=== PATIENT | female | born 1980 ===

== ENCOUNTER 2018-05-23 22:43 | Emergency (ER) | payer SELFPAY ==
[2018-05-23 22:52] VITALS: BP 150/99
--- NOTE | 2018-05-23 22:53 | EDPHY ---
H & P Time Seen by Provider: 05/23/18 22:46 HPI/ROS: HPI Medical clearance for snf. Alcohol intoxication. 37-year-old female with [employer] police by EMS. This [facility] [place] [facility]. She has been drinking alcohol. She does not admit to other substance abuse. She apparently was being combative and acting bizarrely. When police approached her, she resisted them and ran away. She was then apprehended by them and is now under arrest. They brought her here for medical clearance for snf. She does have some superficial abrasions on her left big toe. Otherwise no other injuries or complaints. ROS: Constitutional: No fever, no chills. No weakness. Eyes: No discharge. No changes in vision. ENT: No sore throat. No nasal congestion or rhinorrhea. Respiratory: No cough. No shortness of breath. Cardiac: No chest pain, no palpitations. Gastrointestinal: No abdominal pain, no vomiting, no diarrhea. Genitourinary: No hematuria. No dysuria or increased frequency with urination. Musculoskeletal: No back pain. No neck pain. No myalgias or arthralgias. Skin: No rashes. Neurological: No headache. No focal weakness or altered sensation. Past medical history: She denies any past medical history. Social history: States she has been drinking alcohol tonight. Denies IV drugs and street drugs. Here currently by herself. Physical Exam: General Appearance: Alert, no distress. This patient is responding to questions appropriately and in full sentences. This patient appears well- hydrated and well-nourished. Head: Normocephalic atraumatic. Eyes: Pupils equal and round, dilated at 4-2 mm bilaterally, no pallor or injection. No lid edema, erythema or injection. ENT, Mouth: Mucous membranes are moist. The pharyngeal tissues are unremarkable. No edema or swelling. No asymmetry suggestive of abscess. No erythema or exudates. No tongue lacerations or abrasions. Dentition is intact. Respiratory: There are no retractions, lungs are clear to auscultation with good air movement bilaterally. Cardiovascular: Regular rate and rhythm. No murmur. Gastrointestinal: Abdomen is soft and nontender, no masses, bowel sounds normal. No focal tenderness at McBurney's point. No Allan sign. Neurological: Motor sensory function is grossly intact. Cranial nerves are normal. Skin: Warm and dry, no rashes. Superficial abrasions to toes on left foot. Musculoskeletal: Neck is supple and nontender. No midline cervical tenderness on palpation. Extremities are symmetrical. All joints range without pain or impingement. Psychiatric: No agitation. No depression. Database: EKG: Imaging: Procedures: Emergency department course: Vital signs reviewed. She is mildly tachycardic. Moderately hypertensive. I suspect both alcohol and a psychotropic street drug. I do not feel at this time she requires further emergency department workup and management. She was medically cleared for discharge with police to snf. Return to emergency department precautions were discussed with her. All of her questions were answered. She was discharged in good condition with police. Differential Diagnosis: The differential diagnosis on this patient includes but is not limited to alcohol intoxication, probable psychotropic street drug intoxication. Traumatic brain injury, other significant traumatic injury unlikely. This represents a partial list of diagnoses considered. These considerations are based on history, physical exam, past history, reassessment and diagnostic testing. Allergies/Adverse Reactions: Unable to Assess Allergy (Unverified 05/23/18 22:50) Home Medications: Medication Instructions Recorded Unobtainable 05/23/18 Departure - Departure Disposition: Law Enforcement/Court/Half-Way Clinical Impression: Alcohol intoxication Condition: Good Instructions: Alcohol Intoxication (ED) Additional Instructions: Read and follow provided instructions. Follow-up with your primary care physician on Friday for re-evaluation as needed. Do not drink alcohol or take drugs. Return to the emergency department for worsening symptoms or other serious concerns. Referrals: NONE *PRIMARY CARE P,. [Primary Care Provider] - As per Instructions
== END 2018-05-23 22:56 ==
DX: F10.129 Alcohol abuse with intoxication, unspecified (principal)